=== PATIENT | male | born 1980 | race Caucasian/White ===

== ENCOUNTER 2019-07-08 04:40 | Emergency (ER) | payer SELFPAY ==
[2019-07-08] MEDS ORDERED: Diazepam 5 MG TAB ONE (05:27)
[2019-07-08] MEDS ORDERED: Ketorolac Tromethamine 30 MG/ML VIAL ONE (05:27)
== END 2019-07-08 05:40 | disposition home or self-care (01) ==
LOC: ERS 04:40
DX: M54.5 Low back pain (principal); E78.5 Hyperlipidemia, unspecified; F17.210 Nicotine dependence, cigarettes, uncomplicated; Z87.442 Personal history of urinary calculi
CPT/HCPCS: 96372; J1885